=== PATIENT | male | born 1945 | race Caucasian/White ===

== ENCOUNTER 2018-11-01 07:06 | Emergency (ER) | payer OTHER, MEDICARE ==
[2018-11-01 07:20] VITALS: BP 165/85
[2018-11-01] MEDS: Sodium Chloride 0.9% 1,000 ML IV SCH (07:49)
[2018-11-01] MEDS: Sodium Chloride 0.9% 10 ML Syringe FLUSH PRN (07:50)
[2018-11-01] MEDS: Ondansetron 4 MG/2 ML SDV IVPUSH ONE (07:50)
[2018-11-01 08:20] LABS: ANION GAP 12.2 mmol/L (10-20); CHLORIDE,CL 106 mmol/L (98-107); SODIUM,NA 143 mmol/L (136-145)
--- NOTE | 2018-11-01 08:53 | EDM.PDOC ---
ED HPI GENERAL MEDICAL PROBLEM - General Chief Complaint: Gastrointestinal Problem Stated Complaint: nausea/vomiting Time Seen by Provider: 11/01/18 07:08 Source of Information: Reports: Patient History Limitations: Reports: No Limitations - History of Present Illness INITIAL COMMENTS - FREE TEXT/NARRATIVE: Patient presents to the ED with complaints of nausea, vomiting, and left shoulder pain. History of CABG, CHF, pacemaker. Is afebrile. Vomiting started last evening. Shoulder pain has resolved upon arrival. Has no chest pain. Denies headache. Moves all extremities without complaint or weakness. 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 Left Shoulder Pain Score (Numeric/FACES): 1 - Related Data Allergies Allergy/AdvReac Type Severity Reaction Status Date / Time No Known Allergies Allergy Verified 11/01/18 07:23 Home Meds: Home Meds Albuterol [IJD: Albuterol HFA] 2 puff INH Q4HR PRN 09/13/17 [History] Aspirin 81 mg PO DAILY 09/13/17 [History] Fexofenadine HCl [Jessie Allergy] 60 mg PO DAILY PRN 09/13/17 [History] Metoprolol Succinate 25 mg PO DAILY 09/13/17 [History] Simvastatin [Zocor] 10 mg PO BEDTIME 09/13/17 [History] Past Medical History HEENT History: Reports: Allergic Rhinitis, Hard of Hearing, Impaired Vision, Other (See Below) Other HEENT History: He wears glasses; 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 Cardiovascular History: Reports: Bypass, CAD, High Cholesterol, [place], Pacemaker, Other (See Below) Other Cardiovascular History: [place] in December 1998 with CABG as below Respiratory History: Reports: Bronchitis, Recurrent, COPD, Intubation, Previous Gastrointestinal History: Reports: Colon Polyp, Gastritis, GERD, Other (See Below) Other Gastrointestinal History: History of Gray's esophagitis; unknown type of colonic polyps excised by colonoscopy as below Genitourinary History: Reports: BPH Musculoskeletal History: Reports: Arthritis, Back Pain, Chronic, Fracture, Osteoarthritis, Other (See Below) Other Musculoskeletal History: Left wrist fracture in the early ; right quadriceps tear requiring surgery as below Neurological History: Reports: None Endocrine/Metabolic History: Reports: Diabetes, Type II, Obesity/BMI 30+, Other (See Below) Other Endocrine/Metabolic History: Borderline diabetes mellitus currently diet controlled Immunologic History: Reports: None Oncologic (Cancer) History: Reports: None Dermatologic History: Reports: Eczema - Infectious Disease History Infectious Disease History: Reports: Chicken Pox, Measles, Mumps - Past Surgical History Head Surgeries/Procedures: Reports: None HEENT Surgical History: Reports: Oral Surgery Other HEENT Surgeries/Procedures: Multiple teeth extractions including complete upper teeth instruction with patient wearing complete upper dentures Cardiovascular Surgical History: Reports: Coronary Artery Bypass, Pacer, Other ( See Below) Other Cardiovascular Surgeries/Procedures: CABG 3 on 12/15/98 GI Surgical History: Reports: Colonoscopy, EGD, Hernia, Abdominal, Hernia, Inguinal, Polypectomy, Other (See Below) Other GI Surgeries/Procedures: Colonoscopy in about 2011 with polypectomy at that time; EGD in 2017; concurrent umbilical and bilateral inguinal hernia repairs in about 2001 Endocrine Surgical History: Reports: None Neurological Surgical History: Reports: None Musculoskeletal Surgical History: Reports: Other (See Below) Other Musculoskeletal Surgeries/Procedures:: Right quadriceps repair in about 2001 Oncologic Surgical History: Reports: None Dermatological Surgical History: Reports: Skin Biopsy - Past Imaging History Past Imaging History: Reports: Angiography (12/15/98) Social & Family History - Family History HEENT: Reports: Macular Degeneration, Other (See Below) Other HEENT Family History: Father with macular degeneration Cardiac: Reports: Arrhythmia, Bypass, CAD, Hypertension, [place], Pacemaker, Other ( See Below) Other Cardiac Family History: Mother with [place], average 2, arrhythmia, and pacemaker for unknown type of arrhythmia in her 80s; Brother with PTCA/stents in his 50s and separate occasions with subsequent CABG at age 73; son with WPW syndrome however likely inherited from maternal side of the family; brother with hypertension Respiratory: Reports: Asthma, Other (See Below) Other Respiratory Family Hisory: Son with asthma GI: Reports: Colon Polyps, GERD, Other (See Below) Other GI Family History: Father with GERD and hiatal hernia; brother with unknown type of colonic polyps : Reports: None OBGYN: Reports: None Musculoskeletal: Reports: Arthritis, RA, Other (See Below) Other Musculoskeletal Family History: Father with rheumatoid arthritis Neurological: Reports: CVA, Other (See Below) Other Neurological Family History: mother with CVA in her 90s Psychiatric: Reports: Anxiety, Depression, Other (See Below) Other Psychiatric Family History: Son with mild anxiety depression disorder Endocrine/Metabolic: Reports: Diabetes, type II, Other (See Below) Other Endocrine/Metabolic Family History: Brother with diabetes mellitus Hematologic: Reports: None Immunologic: Reports: None Dermatologic: Reports: None Oncologic: Reports: Prostate, Other (See Below) Other Oncologic Family History: Father with prostate cancer - Tobacco Use Smoking Status *Q: Never Smoker - Caffeine Use Caffeine Use: Reports: Coffee (4 cups per day and), Soda (1 Soda per week). Denies: Energy Drinks, Tea - Living Situation & Occupation Living situation: Reports: (1973 with 2 children), with Family ( and daughter) Occupation: Employed ([employer]) ED ROS GENERAL - Review of Systems Review Of Systems: See Below Constitutional: Reports: No Symptoms HEENT: Reports: No Symptoms Respiratory: Reports: No Symptoms Cardiovascular: Reports: No Symptoms Endocrine: Reports: No Symptoms GI/Abdominal: Reports: Nausea, Vomiting : Reports: No Symptoms Musculoskeletal: Reports: Shoulder Pain (left) Skin: Reports: No Symptoms Neurological: Reports: No Symptoms Psychiatric: Reports: No Symptoms Hematologic/Lymphatic: Reports: No Symptoms Immunologic: Reports: No Symptoms ED EXAM, GI/ABD - Physical Exam Exam: See Below Exam Limited By: No Limitations General Appearance: Alert, WD/WN, No Apparent Distress Eyes: Bilateral: Normal Appearance, EOMI Ears: Normal TMs Nose: Normal Inspection, Normal Mucosa, No Blood Throat/Mouth: Normal Inspection, Normal Lips, Normal Teeth, Normal Gums, Normal Oropharynx, Normal Voice, No Airway Compromise Head: Atraumatic, Normocephalic Neck: Normal Inspection, Supple, Non-Tender, Full Range of Motion Respiratory/Chest: No Respiratory Distress, Lungs Clear, Normal Breath Sounds, No Accessory Muscle Use, Chest Non-Tender Cardiovascular: Normal Peripheral Pulses, Regular Rate, Rhythm, No Edema, No Gallop, No JVD, No Murmur, No Rub GI/Abdominal Exam: Normal Bowel Sounds, Soft, Non-Tender, No Organomegaly, No Distention, No Abnormal Bruit, No Mass, Pelvis Stable (Male) Exam: Deferred Rectal (Males) Exam: Deferred Back Exam: Normal Inspection, Full Range of Motion, NT Extremities: Normal Inspection, Normal Range of Motion, Non-Tender, Normal Capillary Refill, No Pedal Edema Neurological: Alert, Oriented, CN II-XII Intact, Normal Cognition, Normal Gait, Normal Reflexes, No Motor/Sensory Deficits Psychiatric: Normal Affect, Normal Mood Skin Exam: Warm, Dry, Intact, Normal Color, No Rash Lymphatic: No Adenopathy Course - Vital Signs Last Recorded V/S: Last Vital Signs Temp 36.7 C 11/01/18 07:06 Pulse 83 11/01/18 07:06 Resp 18 11/01/18 07:06 BP 165/85 H 11/01/18 07:06 Pulse Ox 97 11/01/18 07:06 - Orders/Labs/Meds Orders: Active Orders 24 hr Category Date Time Status EKG Documentation Completion [RC] STAT Care 11/01/18 07:23 Ordered Chest 1V Frontal [CR] Stat Exams 11/01/18 07:23 Ordered Sodium Chloride 0.9% [Normal Saline] 1,000 ml Med 11/01/18 07:30 Ordered IV ASDIRECTED Sodium Chloride 0.9% [Saline Flush] Med 11/01/18 07:23 Ordered 10 ml FLUSH ASDIRECTED PRN Saline Lock Insert [OM.PC] Routine Oth 11/01/18 07:23 Ordered Medication Orders Sodium Chloride (Normal Saline) 1,000 mls @ 999 mls/hr IV ASDIRECTED ARPIT Last Admin: 11/01/18 07:49 Dose: 999 mls/hr Sodium Chloride (Saline Flush) 10 ml FLUSH ASDIRECTED PRN PRN Reason: Keep Vein Open Last Admin: 11/01/18 07:50 Dose: 10 ml Labs: Laboratory Tests 11/01/18 11/01/18 11/01/18 Range/Units 07:36 07:36 07:36 WBC 5.8 (4.0-10.0) x10^3/uL RBC 4.29 L (4.5-6.0) x10^6/uL Hgb 13.1 L (14.0-18.0) g/dL Hct 41.0 (40.0-52.0) % MCV 95.6 H (78.0-93.0) fL MCH 30.5 (26.0-32.0) pg MCHC 32.0 (32.0-36.0) g/dL RDW Coeff of Angelo 13.6 (10.0-15.0) % Plt Count 143 (130-400) x10^3/uL Neut % (Auto) 85.4 H (50.0-80.0) % Lymph % (Auto) 9.5 L (25.0-50.0) % Elbert % (Auto) 4.6 (2.0-11.0) % Eos % (Auto) 0.3 (0.0-4.0) % Baso % (Auto) 0.2 (0.2-1.2) % PT 10.9 (9.6-11.4) SEC INR 1.0 L (2.0-3.5) Sodium 143 (136-145) mmol/L Potassium 4.2 (3.5-5.1) mmol/L Chloride 106 (98-107) mmol/L Carbon Dioxide 29 (21-32) mmol/L Anion Gap 12.2 (10-20) mmol/L BUN 29 H (7-18) mg/dL Creatinine 1.2 (0.70-1.30) mg/dL Est Cr Clr Drug Dosing 49.47 mL/min Estimated GFR (MDRD) 59 Glucose 184 H (74-106) mg/dL Calcium 9.0 (8.5-10.1) mg/dL Corrected Calcium 9.40 (8.5-10.1) mg/dL Phosphorus (2.6-4.7) mg/dL Magnesium (1.8-2.4) mg/dL Total Bilirubin 0.5 (0.2-1.0) mg/dL AST 17 (15-37) U/L ALT 20 (16-63) U/L Alkaline Phosphatase 63 (46-116) U/L Troponin I < 0.017 (<=0.056) ng/mL NT-Pro-B Natriuret Pep 562 H (<=125) pg/mL Total Protein 7.3 (6.4-8.2) g/dL Albumin 3.5 (3.4-5.0) g/dL Globulin 3.8 Albumin/Globulin Ratio 0.92 TSH, Ultra Sensitive 1.307 (0.358-3.74) uIU/mL 11/01/18 Range/Units 07:36 WBC (4.0-10.0) x10^3/uL RBC (4.5-6.0) x10^6/uL Hgb (14.0-18.0) g/dL Hct (40.0-52.0) % MCV (78.0-93.0) fL MCH (26.0-32.0) pg MCHC (32.0-36.0) g/dL RDW Coeff of Angelo (10.0-15.0) % Plt Count (130-400) x10^3/uL Neut % (Auto) (50.0-80.0) % Lymph % (Auto) (25.0-50.0) % Elbert % (Auto) (2.0-11.0) % Eos % (Auto) (0.0-4.0) % Baso % (Auto) (0.2-1.2) % PT (9.6-11.4) SEC INR (2.0-3.5) Sodium (136-145) mmol/L Potassium (3.5-5.1) mmol/L Chloride (98-107) mmol/L Carbon Dioxide (21-32) mmol/L Anion Gap (10-20) mmol/L BUN (7-18) mg/dL Creatinine (0.70-1.30) mg/dL Est Cr Clr Drug Dosing mL/min Estimated GFR (MDRD) Glucose (74-106) mg/dL Calcium (8.5-10.1) mg/dL Corrected Calcium (8.5-10.1) mg/dL Phosphorus 2.7 (2.6-4.7) mg/dL Magnesium 2.4 (1.8-2.4) mg/dL Total Bilirubin (0.2-1.0) mg/dL AST (15-37) U/L ALT (16-63) U/L Alkaline Phosphatase (46-116) U/L Troponin I (<=0.056) ng/mL NT-Pro-B Natriuret Pep (<=125) pg/mL Total Protein (6.4-8.2) g/dL Albumin (3.4-5.0) g/dL Globulin Albumin/Globulin Ratio TSH, Ultra Sensitive (0.358-3.74) uIU/mL Meds: Medications Generic Name Dose Route Start Last Admin Trade Name Freq PRN Reason Stop Dose Admin Sodium Chloride 1,000 mls @ 999 mls/hr 11/01/18 07:30 11/01/18 07:49 Normal Saline IV 999 mls/hr ASDIRECTED ARPIT Administration Sodium Chloride 10 ml 11/01/18 07:23 11/01/18 07:50 Saline Flush FLUSH 10 ml ASDIRECTED PRN Administration Keep Vein Open Discontinued Medications Generic Name Dose Route Start Last Admin Trade Name Sriramq PRN Reason Stop Dose Admin Ondansetron HCl 4 mg 11/01/18 07:23 11/01/18 07:50 Zofran IVPUSH 11/01/18 07:24 4 mg ONETIME ONE Administration - Re-Assessments/Exams Free Text/Narrative Re-Assessment/Exam: 11/01/18 10:23 chest x-ray negative for any pneumonia, infiltrates or atelectasis. Does show mild CHF. Departure - Departure Time of Disposition: 09:00 Disposition: Home, Self-Care 01 Condition: Good Clinical Impression: Gastroenteritis - Discharge Information *PRESCRIPTION DRUG MONITORING PROGRAM REVIEWED*: Not Applicable *COPY OF PRESCRIPTION DRUG MONITORING REPORT IN PATIENT MICK: Not Applicable Instructions: Viral Gastroenteritis, Adult, [id number], Nausea and Vomiting, Adult, [id number] Additional Instructions: Plan 1. Try to stay hydrated 2. All labs came back normal and are not concerning for any heart conditions 3. Follow up with your primary doctor if your symptoms do not improve over the next several days 4. Make sure to keep your follow up appts with your doctors next Tuesday 5. Please return to the ER if you have any worsening chest/shoulder pain or if you have any additional questions or concerns - Problem List & Annotations (1) Gastroenteritis SNOMED Code(s): 44087413 Code(s): K52.9 - NONINFECTIVE GASTROENTERITIS AND COLITIS, UNSPECIFIED Status: Acute Priority: Medium Current Visit: Yes - Problem List Review Problem List Initiated/Reviewed/Updated: Yes - My Orders Last 24 Hours: My Active Orders 11/01/18 07:23 EKG Documentation Completion [RC] STAT Chest 1V Frontal [CR] Stat Sodium Chloride 0.9% [Saline Flush] 10 ml FLUSH ASDIRECTED PRN Saline Lock Insert [OM.PC] Routine 11/01/18 07:30 Sodium Chloride 0.9% [Normal Saline] 1,000 ml IV ASDIRECTED - Assessment/Plan Last 24 Hours: My Active Orders 11/01/18 07:23 EKG Documentation Completion [RC] STAT Chest 1V Frontal [CR] Stat Sodium Chloride 0.9% [Saline Flush] 10 ml FLUSH ASDIRECTED PRN Saline Lock Insert [OM.PC] Routine 11/01/18 07:30 Sodium Chloride 0.9% [Normal Saline] 1,000 ml IV ASDIRECTED Assessment:: viral gastroenteritis Plan: Plan 1. Try to stay hydrated 2. All labs came back normal and are not concerning for any heart conditions 3. Follow up with your primary doctor if your symptoms do not improve over the next several days 4. Make sure to keep your follow up appts with your doctors next Tuesday 5. Please return to the ER if you have any worsening chest/shoulder pain or if you have any additional questions or concerns
--- NOTE | 2018-11-01 08:53 | CR ---
[id number] RAD/RAD Chest PA or AP 1V EXAM: FRONTAL CHEST INDICATION: Chest pain. COMPARISON: None. DISCUSSION: Cardiomegaly with borderline central vascular congestion. Moderate to large hiatus hernia. Prior sternotomy. Possible small right effusion. Left subclavian approach pacemaker leads tips are a and likely RV. IMPRESSION: 1. Mild congestive heart failure. Toan Gallo MD 11/01/18 0852 Thank you for allowing us to participate in the care of your patient.
[2018-11-01] MEDS: Take Home: Ondansetron 4 MG Tab.DIS, 2 Tab Pack PO ONE (08:57)
== END 2018-11-01 09:00 | disposition home or self-care (01) ==
LOC: VM.ED 07:06
DX: A08.4 Viral intestinal infection, unspecified (principal); I25.2 Old myocardial infarction; I25.10 Atherosclerotic heart disease of native coronary artery without angina pectoris; J44.9 Chronic obstructive pulmonary disease, unspecified; E11.9 Type 2 diabetes mellitus without complications; E66.9 Obesity, unspecified; Z79.82 Long term (current) use of aspirin
CPT/HCPCS: 36415; 71045; 80053; 83735; 83880; 84100; 84443; 84484; 85025; 85610; 93005; 96361; 96374; 99284-25; A9270-GY; J2405; J7030

== ENCOUNTER 2019-08-30 21:42 | Emergency (ER) | payer OTHER, MEDICARE ==
[2019-08-30] MEDS ORDERED: Sodium Chloride 0.9% 1,000 ML IV ONE (21:56)
[2019-08-30] MEDS ORDERED: Ondansetron 4 MG/2 ML SDV IVPUSH ONE (21:56)
[2019-08-30] MEDS ORDERED: Sodium Chloride 0.9% 10 ML Syringe FLUSH PRN (21:56)
[2019-08-30 22:35] LABS: CHLORIDE,CL 105 mmol/L (98-107); SODIUM,NA 143 mmol/L (136-145)
[2019-08-30 22:36] LABS: ANION GAP 13.9 mmol/L (10-20)
[2019-08-30] MEDS ORDERED: Take Home: Ondansetron 4 MG Tab.DIS, 2 Tab Pack PO ONE (22:48)
--- NOTE | 2019-08-31 06:26 | EDM.PDOC ---
ED HPI GENERAL MEDICAL PROBLEM - General Chief Complaint: Gastrointestinal Problem Stated Complaint: NAUSEA Time Seen by Provider: 08/30/19 21:48 Source of Information: Reports: Patient History Limitations: Reports: No Limitations - History of Present Illness INITIAL COMMENTS - FREE TEXT/NARRATIVE: Pt. presents to ER with complaints of 3 day history of nausea, vomiting, and diarrhea. Pt. states that he has had only one episode of diarrhea today. Denies any fever or chills. No chest pain or shortness of breath. He states that he has some cough as well. It has been non-productive. Denies any abdominal pain but has some cramping. No bloody stools. Onset: Today Onset Date: 08/31/19 Location: Reports: Chest, Abdomen Associated Symptoms: Reports: Cough, Nausea/Vomiting. Denies: Fever/Chills, Shortness of Breath - Related Data Allergies Allergy/AdvReac Type Severity Reaction Status Date / Time No Known Allergies Allergy Verified 08/30/19 22:32 Home Meds: Home Meds Albuterol [IJD: Albuterol HFA] 2 puff INH Q4HR PRN 09/13/17 [History] Aspirin 81 mg PO DAILY 09/13/17 [History] Fexofenadine HCl [Jessie Allergy] 60 mg PO DAILY PRN 09/13/17 [History] Metoprolol Succinate 25 mg PO BID 09/13/17 [History] Simvastatin [Zocor] 10 mg PO BEDTIME 09/13/17 [History] Furosemide [Lasix] 40 mg PO DAILY 08/30/19 [History] Past Medical History HEENT History: Reports: Allergic Rhinitis, Hard of Hearing, Impaired Vision, Other (See Below) Other HEENT History: He wears glasses; 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 Cardiovascular History: Reports: Bypass, CAD, High Cholesterol, NE, Pacemaker, Other (See Below) Other Cardiovascular History: 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 CABG as below Respiratory History: Reports: Bronchitis, Recurrent, COPD, Intubation, Previous Gastrointestinal History: Reports: Colon Polyp, Gastritis, GERD, Other (See Below) Other Gastrointestinal History: History of Gray's esophagitis; unknown type of colonic polyps excised by colonoscopy as below Genitourinary History: Reports: BPH Musculoskeletal History: Reports: Arthritis, Back Pain, Chronic, Fracture, Osteoarthritis, Other (See Below) Other Musculoskeletal History: Left wrist fracture in the early 1999s; right quadriceps tear requiring surgery as below Neurological History: Reports: None Endocrine/Metabolic History: Reports: Diabetes, Type II, Obesity/BMI 30+, Other (See Below) Other Endocrine/Metabolic History: Borderline diabetes mellitus currently diet controlled Immunologic History: Reports: None Oncologic (Cancer) History: Reports: None Dermatologic History: Reports: Eczema - Infectious Disease History Infectious Disease History: Reports: Chicken Pox, Measles, Mumps - Past Surgical History Head Surgeries/Procedures: Reports: None HEENT Surgical History: Reports: Oral Surgery Other HEENT Surgeries/Procedures: Multiple teeth extractions including complete upper teeth instruction with patient wearing complete upper dentures Cardiovascular Surgical History: Reports: Coronary Artery Bypass, Pacer, Other ( See Below) Other Cardiovascular Surgeries/Procedures: CABG 3 on 12/15/98 GI Surgical History: Reports: Colonoscopy, EGD, Hernia, Abdominal, Hernia, Inguinal, Polypectomy, Other (See Below) Other GI Surgeries/Procedures: Colonoscopy in about 2011 with polypectomy at that time; EGD in 2017; concurrent umbilical and bilateral inguinal hernia repairs in about 2001 Endocrine Surgical History: Reports: None Neurological Surgical History: Reports: None Musculoskeletal Surgical History: Reports: Other (See Below) Other Musculoskeletal Surgeries/Procedures:: Right quadriceps repair in about 2001 Oncologic Surgical History: Reports: None Dermatological Surgical History: Reports: Skin Biopsy - Past Imaging History Past Imaging History: Reports: Angiography (12/15/98) Social & Family History - Family History HEENT: Reports: Macular Degeneration, Other (See Below) Other HEENT Family History: Father with macular degeneration Cardiac: Reports: Arrhythmia, Bypass, CAD, Hypertension, NE, Pacemaker, Other ( See Below) Other Cardiac Family History: Mother with NE, average 2, arrhythmia, and pacemaker for unknown type of arrhythmia in her 80s; Brother with PTCA/stents in his 50s and separate occasions with subsequent CABG at age 73; son with WPW syndrome however likely inherited from maternal side of the family; brother with hypertension Respiratory: Reports: Asthma, Other (See Below) Other Respiratory Family Hisory: Son with asthma GI: Reports: Colon Polyps, GERD, Other (See Below) Other GI Family History: Father with GERD and hiatal hernia; brother with unknown type of colonic polyps : Reports: None OBGYN: Reports: None Musculoskeletal: Reports: Arthritis, RA, Other (See Below) Other Musculoskeletal Family History: Father with rheumatoid arthritis Neurological: Reports: CVA, Other (See Below) Other Neurological Family History: mother with CVA in her 90s Psychiatric: Reports: Anxiety, Depression, Other (See Below) Other Psychiatric Family History: Son with mild anxiety depression disorder Endocrine/Metabolic: Reports: Diabetes, type II, Other (See Below) Other Endocrine/Metabolic Family History: Brother with diabetes mellitus Hematologic: Reports: None Immunologic: Reports: None Dermatologic: Reports: None Oncologic: Reports: Prostate, Other (See Below) Other Oncologic Family History: Father with prostate cancer - Tobacco Use Smoking Status *Q: Never Smoker - Caffeine Use Caffeine Use: Reports: Coffee (4 cups per day and), Soda (1 Soda per week). Denies: Energy Drinks, Tea - Living Situation & Occupation Living situation: Reports: (1974 with 2 children), with Family ( and daughter) Occupation: Employed ([employer]) ED ROS GENERAL - Review of Systems Review Of Systems: See Below Constitutional: Reports: No Symptoms HEENT: Reports: No Symptoms Respiratory: Reports: Cough Cardiovascular: Reports: No Symptoms Endocrine: Reports: No Symptoms GI/Abdominal: Reports: Diarrhea, Nausea, Vomiting : Reports: No Symptoms Musculoskeletal: Reports: No Symptoms Skin: Reports: No Symptoms Neurological: Reports: No Symptoms Psychiatric: Reports: No Symptoms Hematologic/Lymphatic: Reports: No Symptoms Immunologic: Reports: No Symptoms ED EXAM, GENERAL - Physical Exam Exam: See Below Exam Limited By: No Limitations General Appearance: Alert, WD/WN, No Apparent Distress Eye Exam: Bilateral Eye: EOMI, PERRL Nose: Normal Inspection, Normal Mucosa, No Blood Throat/Mouth: Normal Inspection, Normal Lips, Normal Teeth, Normal Gums, Normal Oropharynx, Normal Voice, No Airway Compromise Head: Atraumatic, Normocephalic Neck: Normal Inspection, Supple, Non-Tender Respiratory/Chest: No Respiratory Distress, Lungs Clear, Normal Breath Sounds, No Accessory Muscle Use, Chest Non-Tender Cardiovascular: Normal Peripheral Pulses, Regular Rate, Rhythm, No Edema, No Gallop, No JVD, No Murmur, No Rub Peripheral Pulses: 4+: Radial (L) GI/Abdominal: Normal Bowel Sounds, Soft, Non-Tender, No Organomegaly, No Distention, No Abnormal Bruit, No Mass, Pelvis Stable (Male) Exam: Deferred Rectal (Males) Exam: Deferred Back Exam: Normal Inspection, Full Range of Motion Extremities: Normal Inspection, Normal Range of Motion, Non-Tender, No Pedal Edema, Normal Capillary Refill Neurological: Alert, Oriented, CN II-XII Intact, Normal Cognition, Normal Gait, Normal Reflexes, No Motor/Sensory Deficits Psychiatric: Normal Affect, Normal Mood Skin Exam: Warm, Dry, Intact, Normal Color, No Rash Lymphatic: No Adenopathy Course - Vital Signs Last Recorded V/S: Last Vital Signs Temp 36.6 C 08/30/19 21:55 Pulse 83 08/30/19 21:55 Resp 20 08/30/19 21:55 BP 141/80 H 08/30/19 21:55 Pulse Ox 97 08/30/19 21:55 - Orders/Labs/Meds Orders: Active Orders 24 hr Category Date Time Status Chest 2V [CR] Stat Exams 08/30/19 21:55 Taken Peripheral IV Insertion Adult [OM.PC] Routine Oth 08/30/19 21:56 Ordered Labs: Laboratory Tests 08/30/19 08/30/19 08/30/19 Range/Units 22:09 22:09 22:09 WBC 8.1 (4.0-10.0) x10^3/uL RBC 4.34 L (4.5-6.0) x10^6/uL Hgb 13.1 L (14.0-18.0) g/dL Hct 40.1 (40.0-52.0) % MCV 92.4 D (78.0-93.0) fL MCH 30.2 (26.0-32.0) pg MCHC 32.7 (32.0-36.0) g/dL RDW Coeff of Angelo 13.7 (10.0-15.0) % Plt Count 165 (130-400) x10^3/uL Neut % (Auto) 80.8 H (50.0-80.0) % Lymph % (Auto) 8.8 L (25.0-50.0) % [place] % (Auto) 8.4 (2.0-11.0) % Eos % (Auto) 1.6 (0.0-4.0) % Baso % (Auto) 0.4 (0.2-1.2) % PT 10.8 (10.0-12.8) SEC INR 1.0 L (2.0-3.5) Sodium 143 (136-145) mmol/L Potassium 3.9 (3.5-5.1) mmol/L Chloride 105 (98-107) mmol/L Carbon Dioxide 28 (21-32) mmol/L Anion Gap 13.9 (10-20) mmol/L BUN 22 H (7-18) mg/dL Creatinine 1.1 (0.70-1.30) mg/dL Est Cr Clr Drug Dosing TNP Estimated GFR (MDRD) > 60 Glucose 121 H (74-106) mg/dL Calcium 9.0 (8.5-10.1) mg/dL Corrected Calcium 9.48 (8.5-10.1) mg/dL Total Bilirubin 0.4 (0.2-1.0) mg/dL AST 17 (15-37) U/L ALT 22 (16-63) U/L Alkaline Phosphatase 56 (46-116) U/L Total Protein 7.3 (6.4-8.2) g/dL Albumin 3.4 (3.4-5.0) g/dL Globulin 3.9 Albumin/Globulin Ratio 0.87 Meds: Medications Discontinued Medications Generic Name Dose Route Start Last Admin Trade Name Freq PRN Reason Stop Dose Admin Sodium Chloride 1,000 mls @ 1,000 mls/hr 08/30/19 21:56 08/30/19 22:35 Normal Saline IV 08/30/19 22:55 1,000 mls/hr .BOLUS ONE Administration Ondansetron HCl 4 mg 08/30/19 21:56 08/30/19 22:11 Zofran IVPUSH 08/30/19 21:57 4 mg ONETIME ONE Administration Ondansetron HCl 1 packet 08/30/19 22:48 08/30/19 22:53 Take Home: Ondansetron Odt 4 Mg, 2 Tab Pack PO 08/30/19 22:49 1 packet ONETIME ONE Administration Sodium Chloride 10 ml 08/30/19 21:56 08/30/19 22:34 Saline Flush FLUSH 10 ml ASDIRECTED PRN Administration Keep Vein Open - Radiology Interpretation Free Text/Narrative:: chest x-ray is negative Departure - Departure Time of Disposition: 23:00 Disposition: Home, Self-Care 01 Clinical Impression: Gastroenteritis - Discharge Information Instructions: Ondansetron oral dissolving tablet, Viral Gastroenteritis, Adult , [id number], Food Choices to Help Relieve Diarrhea, Adult Referrals: Wilfredo Luna MD [Primary Care Provider] - Forms: ED Department Discharge Additional Instructions: Home to rest. Zofran 4mg ODT 1 tab every 6 hours as needed for nausea/vomiting Loperamide (immodium) 1 tab after every loose stool OR every 4-6 hours as needed for diarrhea. This is available over the counter. Clear liquid diet until at least noon tomorrow, longer if still having nausea/ vomiting/diarrhea Return to ER if you have any chest pain, shortness of breath, or lightheadedness. Recheck in clinic in 10-14 days. Sepsis Event Note - Evaluation Sepsis Screening Result: No Definite Risk - Focused Exam Vital Signs: Vital Signs Temp Pulse Resp BP Pulse Ox 08/30/19 21:55 36.6 C 83 20 141/80 H 97 Date Exam was Performed: 08/31/19 Time Exam was Performed: 06:31 - My Orders Last 24 Hours: My Active Orders 08/30/19 21:55 Chest 2V [CR] Stat 08/30/19 21:56 Peripheral IV Insertion Adult [OM.PC] Routine - Assessment/Plan Last 24 Hours: My Active Orders 08/30/19 21:55 Chest 2V [CR] Stat 08/30/19 21:56 Peripheral IV Insertion Adult [OM.PC] Routine Plan: Home to rest. Zofran 4mg ODT 1 tab every 6 hours as needed for nausea/vomiting Loperamide (immodium) 1 tab after every loose stool OR every 4-6 hours as needed for diarrhea. This is available over the counter. Clear liquid diet until at least noon tomorrow, longer if still having nausea/ vomiting/diarrhea Return to ER if you have any chest pain, shortness of breath, or lightheadedness. Recheck in clinic in 10-14 days.
--- NOTE | 2019-08-31 08:37 | CR ---
[id number] RAD/RAD Chest PA And Lateral EXAM: FRONTAL AND LATERAL CHEST INDICATION: Cough. COMPARISON: November 29, 2018. DISCUSSION: The heart is enlarged with borderline central vascular congestion that is similar to the previous examination. Prior sternotomy. Left subclavian approach pacemaker leads RA and RV. Hyperinflation suggests underlying chronic obstructive pulmonary disease. Mild linear scarring or atelectasis in the lung bases. Possible small bilateral effusions. Moderate to large hiatus hernia. IMPRESSION: 1. Cardiomegaly with borderline central vascular congestion. 2. Mild basilar scarring or atelectasis with no definite infiltrates. Toan Gallo MD 08/31/19 0835 Thank you for allowing us to participate in the care of your patient.
== END 2019-08-30 23:00 | disposition home or self-care (01) ==
LOC: VM.ED 21:42
DX: K52.9 Noninfective gastroenteritis and colitis, unspecified (principal); Z79.82 Long term (current) use of aspirin; Z79.899 Other long term (current) drug therapy; I25.2 Old myocardial infarction
CPT/HCPCS: 71046; 80053; 85025; 85610; 87804; 96361; 96374; 99284; A9270; J2405; J7030

== ENCOUNTER 2023-06-12 16:56 | Emergency (ER) | payer OTHER, MEDICARE ==
[2023-06-12] MEDS ORDERED: Lidocaine 1% 10 ML MDV INJECT ONE (17:07)
== END 2023-06-12 18:05 | disposition home or self-care (01) ==
LOC: VM.ED 16:56
DX: S61.411A Laceration without foreign body of right hand, initial encounter (principal); I25.10 Atherosclerotic heart disease of native coronary artery without angina pectoris; I10 Essential (primary) hypertension; I25.2 Old myocardial infarction; E78.00 Pure hypercholesterolemia, unspecified; J44.9 Chronic obstructive pulmonary disease, unspecified; E66.9 Obesity, unspecified; E11.9 Type 2 diabetes mellitus without complications; M19.90 Unspecified osteoarthritis, unspecified site; Z68.33 Body mass index [BMI] 33.0-33.9, adult; Z95.0 Presence of cardiac pacemaker; Z79.01 Long term (current) use of anticoagulants; Z79.82 Long term (current) use of aspirin; Z79.899 Other long term (current) drug therapy
CPT/HCPCS: 12004; 99282; 99283; J3490